=== PATIENT | male | born 1960 | race Hispanic/Latino ===

== ENCOUNTER 2017-10-10 10:06 | Day surgery (SDC) | payer OTHER ==
[~2017-10-10] VITALS: Ht 162.6 cm; Wt 80.7 kg
[~2017-10-10 10:06] MED LIST: AMBIEN10 MG PO; BENZTROPINE ME0.5 MG PO; CELEXA40 MG PO; CLONAZEPAM0.5 MG PO; COGENTIN0.5 MG PO; COGENTIN1 MG PO; COMBIVENT INH14.7 GM IH; CYCLOBENZAPRINE5 MG PO; Combivent IH; DESYREL 150 MG150 MG PO; DESYREL12.5 MG PO; DESYREL150 MG PO; ENDOCET 10-3251 EACH PO; ENDOCET 5-3251 EACH PO; FAMOTIDINE20 MG PO; FENOFIBRATE160 M1 PO; FLEXERIL10 MG PO; Flexeril PO; GLUCOPHAGE1000 MG PO; GLUCOPHAGE500 MG PO; IMITREX100 MG PO; INHALER IH; KLONOPIN0.5 M1 PO; LATUDA40 MG PO; LOVASTATIN20 MG PO; LYRICA75 MG PO; Lofibra,Triglide PO; Lopressor PO; MELOXICAM7.5 MG PO; METOPROLOL SUCC25 MG PO; MEVACOR40 MG PO; Niacin PO; OPANA ER10 MG PO; PRILOSEC20 MG PO; PROCHLORPERAZIN10 MG PO; Pepcid PO; PriLOSEC PO; RISPERDAL0.5 MG PO; RISPERDAL1 MG PO; RISPERDAL2 MG PO; TRAZODONE HCL50 MG PO; ULTRAM50 MG PO; Vicodin,Norco 5/325 PO; celeXA PO
== END 2017-10-10 11:40 | disposition home or self-care (01) ==
LOC: PAIN 10:06
PROVIDERS: Anesthesiology Pain Medicine
PROC: BR141ZZ Fluoroscopy of Cervical Facet Joint(s) using Low Osmolar Contrast (ICD-10-PCS; principal; 2017-10-10)
PROC: 3E0T33Z Introduction of Anti-inflammatory into Peripheral Nerves and Plexi, Percutaneous Approach (ICD-10-PCS; principal; 2017-10-10)
PROC: 3E0T3BZ Introduction of Anesthetic Agent into Peripheral Nerves and Plexi, Percutaneous Approach (ICD-10-PCS; principal; 2017-10-10)
DX: M47.812 Spondylosis without myelopathy or radiculopathy, cervical region (principal); M54.12 Radiculopathy, cervical region; M47.816 Spondylosis without myelopathy or radiculopathy, lumbar region; M54.16 Radiculopathy, lumbar region; M46.1 Sacroiliitis, not elsewhere classified; G89.29 Other chronic pain; M79.1 Myalgia; E11.9 Type 2 diabetes mellitus without complications; I10 Essential (primary) hypertension; J45.909 Unspecified asthma, uncomplicated; Z79.84 Long term (current) use of oral hypoglycemic drugs; Z79.891 Long term (current) use of opiate analgesic; Z87.891 Personal history of nicotine dependence
CPT/HCPCS: 82948; J1030; J2250; J3010; S0020

== ENCOUNTER 2017-12-05 10:14 | Day surgery (SDC) | payer OTHER ==
[~2017-12-05] VITALS: Ht 162.6 cm; Wt 80.7 kg
== END 2017-12-05 11:05 | disposition home or self-care (01) ==
LOC: PAIN 10:14
PROVIDERS: Anesthesiology Pain Medicine
PROC: 3E0X33Z Introduction of Anti-inflammatory into Cranial Nerves, Percutaneous Approach (ICD-10-PCS; principal; 2017-12-05)
PROC: B2141ZZ Fluoroscopy of Right Heart using Low Osmolar Contrast (ICD-10-PCS; principal; 2017-12-05)
PROC: 3E0X3BZ Introduction of Anesthetic Agent into Cranial Nerves, Percutaneous Approach (ICD-10-PCS; principal; 2017-12-05)
DX: M47.812 Spondylosis without myelopathy or radiculopathy, cervical region (principal); G43.909 Migraine, unspecified, not intractable, without status migrainosus; M54.81 Occipital neuralgia; M54.12 Radiculopathy, cervical region; G89.29 Other chronic pain; E11.9 Type 2 diabetes mellitus without complications; M54.5 Low back pain; Z79.84 Long term (current) use of oral hypoglycemic drugs; Z88.5 Allergy status to narcotic agent
CPT/HCPCS: 82948; J1030; J2250; J3010; S0020

== ENCOUNTER 2018-01-18 08:04 | Day surgery (SDC) | payer OTHER ==
[~2018-01-18] VITALS: Ht 162.6 cm; Wt 81.7 kg
[~2018-01-18 08:04] MED LIST changes: +CELEXA20 MG PO; +FLOVENT 11120 INHALA IH; +LOPRESSOR25 MG PO; -METOPROLOL SUCC25 MG PO; +PROAIR HFA8.5 GM IH; +SINEQUAN10 MG PO
== END 2018-01-18 09:35 | disposition home or self-care (01) ==
LOC: PAIN 08:04 → SDC 09:00 → PAIN 09:00
PROVIDERS: Anesthesiology Pain Medicine
PROC: 3E0T3TZ Introduction of Destructive Agent into Peripheral Nerves and Plexi, Percutaneous Approach (ICD-10-PCS; principal; 2018-01-18)
PROC: B01B1ZZ Fluoroscopy of Spinal Cord using Low Osmolar Contrast (ICD-10-PCS; principal; 2018-01-18)
DX: M47.812 Spondylosis without myelopathy or radiculopathy, cervical region (principal); G43.909 Migraine, unspecified, not intractable, without status migrainosus; M54.12 Radiculopathy, cervical region; M54.81 Occipital neuralgia; G89.29 Other chronic pain; M54.5 Low back pain; E11.9 Type 2 diabetes mellitus without complications; Z79.84 Long term (current) use of oral hypoglycemic drugs; Z88.5 Allergy status to narcotic agent
CPT/HCPCS: 82948; J1030; J2250; S0020

== ENCOUNTER 2018-01-25 10:12 | Day surgery (SDC) | payer OTHER ==
[~2018-01-25] VITALS: Ht 162.6 cm; Wt 81.7 kg
== END 2018-01-25 13:22 | disposition home or self-care (01) ==
LOC: PAIN 10:12 → SDC 11:15 → PAIN 11:15
PROVIDERS: Anesthesiology Pain Medicine
DX: M47.812 Spondylosis without myelopathy or radiculopathy, cervical region (principal); M54.12 Radiculopathy, cervical region; M47.816 Spondylosis without myelopathy or radiculopathy, lumbar region; M79.1 Myalgia; M46.1 Sacroiliitis, not elsewhere classified; E11.9 Type 2 diabetes mellitus without complications; I10 Essential (primary) hypertension; J45.909 Unspecified asthma, uncomplicated; Z79.84 Long term (current) use of oral hypoglycemic drugs; Z79.891 Long term (current) use of opiate analgesic; Z87.891 Personal history of nicotine dependence
CPT/HCPCS: 82948; J1030; J2250; S0020